=== PATIENT | female | born 1965 | race Caucasian/White ===

== ENCOUNTER 2022-02-26 12:15 | Outpatient (CLI) | payer OTHER, SELFPAY ==
--- NOTE | 2022-02-26 12:36 | XR_ITS ---
WS: [id number] DEXA (DUAL ENERGY X-RAY ABSORPTIOMETRY) Bone mineral density was performed using a Beats[employer] machine. HISTORY: POST MENOPAUSAL COMPARISON: None available. Lumbar spine BMD (L1-L4): 0.943 g/cm2 T score: -2.0 Z score: -0.9 Total hip BMD: Left: 0.691 g/cm2. T score: -2.5 Z score: -1.7 Right: 0.661 g/cm2. T score: -2.8 Z score: -1.9 10 year probability of a major osteoporotic fracture is 24%. XR/XR DEXA axial skeleton* [id number] IMPRESSION: OSTEOPOROSIS based upon the WHO classification for females.
== END 2022-02-26 12:16 | disposition home or self-care (01) ==
LOC: RAD 12:17
PROVIDERS: Visit Provider Family Medicine
DX: Z78.0 Asymptomatic menopausal state (principal); M81.0 Age-related osteoporosis without current pathological fracture
CPT/HCPCS: 77080

== ENCOUNTER 2022-04-10 08:14 | Outpatient (CLI) | payer OTHER, SELFPAY ==
--- NOTE | 2022-04-10 08:26 | CT_ITS ---
WS: [id number] LDCT LUNG CANCER SCREENING TECHNIQUE: Noncontrast CT of the chest with coronal and sagittal reformatted images. CLINICAL INFORMATION: NICOTINE DEPENDENCE,CIGARETTES COMPARISON: None. DLP: 72.59 mGy.cm DIvol: Mean CTDIvol: 1.60 (mGy) All CT scans at [facility] use at least one of these dose optimization techniques: automat ed exposure control; mA and/or kV adjustment per patient size (includes targeted exams where dose is matched to clinical indication); or iterative reconstruction. FINDINGS: Moderate chronic emphysematous changes. Slight bibasilar atelectasis. No focal pneumonia or pleural f luid. A few small noncalcified nodules in the LEFT upper lobe and RIGHT upper lobe the largest measur ing 3 mm. Normal caliber thoracic aorta. No mediastinal or hilar lymphadenopathy. No axillary lymphadenopathy. Adrenal glands are normal. Chronic appearing LEFT hydronephrosis partial ly visualized. This can be further evaluated with CT abdomen pelvis. LEFT renal cortical atrophy. Heterogeneous parenchymal breast tissue with RIGHT breast nodule measuring 8 mm Upper outer RIGHT jaimie ast. Recommend further evaluation with diagnostic mammography and ultrasound. Additional nodular dens ity central LEFT breast measuring 7 mm. Also recommend LEFT diagnostic mammography and ultrasound. CT/CT lung screening [id number] IMPRESSION: 1. Advanced chronic appearing LEFT hydronephrosis. Recommend further evaluatio n with CT abdomen pelvis. 2. Slightly heterogeneous breast tissue bilaterally with bilateral breast nodu les RIGHT greater than LEFT. Recommend further evaluation with diagnostic mammo graphy and ultrasound. Dominant nodule upper outer RIGHT breast measuring 8 mm. Additional nodule central LEFT breast measuring 7 mm. LUNG-RADS: 2S-Benign Appearance or Behavior with Significant Findings FOLLOW UP: 12 Month: Continue annual screening with LDCT
== END 2022-04-10 08:15 | disposition home or self-care (01) ==
LOC: RAD 08:18
PROVIDERS: PCP Family Medicine; Visit Provider Family Medicine
DX: F17.210 Nicotine dependence, cigarettes, uncomplicated (principal)
CPT/HCPCS: 71271

== ENCOUNTER 2022-04-26 12:00 | Outpatient (CLI) | payer OTHER, SELFPAY ==
--- NOTE | 2022-04-26 12:04 | MM_ITS ---
WS: [id number] BILATERAL 3D TOMOSYNTHESIS DIGITAL SCREENING MAMMOGRAPHY WITH CAD CLINICAL INFORMATION: SCREENING HISTORY: Screening mammogram. RIGHT breast pain and soreness. COMPARISON: June 15, [address] lung screening April 10, 2022 TECHNIQUE: Bilateral CC and MLO views. FINDINGS: The breasts are composed of heterogeneous fibroglandular density tissue, which can limit the detectio n of small underlying mass lesions. Dystrophic calcification RIGHT breast. Asymmetric ovoid densities subareolar and upper outer RIGHT breast mid and anterior depth. Most promi nent at the 12:00 position measuring 8 mm. Recommend RIGHT breast diagnostic mammography and ultrasou nd for further evaluation. LEFT breast is unremarkable and unchanged. MM/[place] [id number] IMPRESSION: BI-RADS: 0-Incomplete: Need additional imaging evaluation FOLLOW UP: Need Additional Imaging Recommend RIGHT breast diagnostic mammography and ultrasound in further evaluat ion. Ultrasound 12:00 position and upper outer RIGHT breast as well as subareol ar.
== END 2022-04-26 12:01 | disposition home or self-care (01) ==
LOC: RAD 12:02
PROVIDERS: PCP Family Medicine; Visit Provider Family Medicine
DX: Z12.31 Encounter for screening mammogram for malignant neoplasm of breast (principal)
CPT/HCPCS: 77063; 77067

== ENCOUNTER 2022-05-01 07:44 | Outpatient (CLI) | payer OTHER, SELFPAY ==
--- NOTE | 2022-05-01 | US_ITS ---
WS: [id number] Exam: US renal BI* [id number] Date/Time of Exam: 05/01/2022 12:00 AM Reason For Exam: HYDRONEPHROSIS There is severe hydronephrosis of the left kidney. The left kidney measures 12.7 x 6.9 x 5.83 cm. The re is also an echogenic mass with calcification in the lower pole of the left kidney that measures 2 x 2 x 2.7 cm. There is a cortical thinning of the left kidney. Evaluation of the right kidney shows a small cyst in the lower pole. This measures about 1 cm greates t diameter. The right kidney measures 10 x 3.6 x 4 cm. The urinary bladder was suboptimally distended for detailed evaluation. Recommendations: Further workup with contrast CT scan of the abdomen and pelvis should be considered. US/US renal BI* [id number] IMPRESSION: 1. Solid hyperechoic mass with calcifications noted in the lower pole of the le ft kidney that measures 2 x 2 x 2.7 cm. The mass is moderately vascular. Malign adi not excluded. 2. Marked left hydronephrosis with some parenchymal atrophy of the left kidney. 3. Small cyst at the lower pole the right kidney. The right kidney was otherwis e unremarkable. Collapsed urinary bladder could not be accurately evaluated.
== END 2022-05-01 07:45 | disposition home or self-care (01) ==
LOC: RADOUTREAD 05-02 07:46
PROVIDERS: PCP Family Medicine; Visit Provider Family Medicine
DX: N13.30 Unspecified hydronephrosis (principal); N28.1 Cyst of kidney, acquired; N28.89 Other specified disorders of kidney and ureter
CPT/HCPCS: 76770

== ENCOUNTER 2022-05-15 10:04 | Outpatient (CLI) | payer OTHER, SELFPAY ==
--- NOTE | 2022-05-15 10:54 | XR_ITS ---
WS: [email or web address] Exam: XR KUB [id number] Date/Time of Exam: 05/15/2022 10:55 AM Reason For Exam: Hydronephrosis No bowel obstruction or free air. Multiple calcifications superimpose both kidneys and are likely chilo al stones. There is enlargement of the left renal silhouette. A 1 cm calcification is seen along the medial aspect of the left kidney and may represent an obstructing stone in the renal pelvis. No sign of organ enlargement. Bony structures are intact. XR/XR KUB [id number] IMPRESSION: 1. 1 cm calcification seen along the medial aspect of the left kidney may repre sent a renal pelvic stone. There is enlargement of the left renal silhouette th at may be secondary to hydronephrosis. 2. Additional small calcification superimpose both kidneys most likely multiple nonobstructing bilateral stones. 3. Multiple nonspecific pelvic calcifications.
== END 2022-05-15 10:05 | disposition home or self-care (01) ==
PROVIDERS: PCP Family Medicine; Visit Provider Urology
DX: N13.30 Unspecified hydronephrosis (principal)
CPT/HCPCS: 74018; 81003

== ENCOUNTER 2022-06-04 09:53 | Outpatient (CLI) | payer OTHER, SELFPAY ==
--- NOTE | 2022-06-04 10:00 | CT_ITS ---
WS: [id number] CT ABDOMEN AND PELVIS WITH AND WITHOUT CONTRAST HISTORY: HYDRONEPHROSIS TECHNIQUE: Unenhanced 5 mm axial imaging first performed through the abdomen. Post contrast imaging t hrough the abdomen and pelvis. Oral contrast has been provided. Sagittal and coronal reformats are s ubmitted. All CT scans at [facility] use at least one of these dose optimization techniques: automated exposure control; mA and/or kV adjustment per patient size (includes targeted exams where d ose is matched to clinical indication); or iterative reconstruction. CONTRAST: Omnipaque 350; 95 mL IV. DLP: 2565.65 mGy.cm COMPARISON: Renal ultrasound 05/01/2022 Lung bases are clear. Heart size is normal. No hiatal hernia. RIGHT kidney: Normal size kidney. 10 mm lower pole cyst. No renal obstruction. No filling defects prosper ng the ureter but the ureter is only partially opacified on the delayed images. LEFT kidney: Severe LEFT hydronephrosis secondary to calcification at the UP junction. Calcification extends over a length of 10 mm. Transverse diameter 8 mm. Severe hydronephrosis with cortical thinnin g. There is still enhancement present within the preserved renal parenchyma. Additional nonobstructin g 3 mm calcification mid kidney. Layering calcification in the lower pole this may be calcification w ithin the wall of the cyst or calcification within the dilated calyces. There are a few additional sc attered cortical cysts throughout the kidney. No solid mass. Scattered too small to characterize hypodensities throughout the liver. Normal portal vein. Normal sp moshe and pancreas. Normal adrenal glands. Mild atherosclerosis aorta. Normal enhancement of the proxi mal mesenteric arteries. No ascites or adenopathy. No GI tract obstruction. Normal appendix. Uterus is anteverted and normal size. Soft tissue mass with calcification arises from the superior ut erus measuring 2.5 x 2.3 cm. No free fluid. CT/CT abdomen pelvis wo/w [id number] IMPRESSION: 1. Severe hydronephrosis LEFT kidney secondary to a ureteral calcification at the UP junction. Calcification extends over length of 10 mm and transversely by 8 mm. 2. Diffuse cortical thinning LEFT kidney suggests long-term obstruction but th ere is still renal parenchymal enhancement. 3. Too small to characterize hypodensities scattered throughout the liver. 4. Mild atherosclerosis aorta. 5. Fibroid uterus.
[2022-06-04] MEDS: iohexol 350 mg/mL 100 mL Btl IV (10:19)
== END 2022-06-04 09:54 | disposition home or self-care (01) ==
PROVIDERS: PCP Family Medicine; Visit Provider Urology
DX: N13.30 Unspecified hydronephrosis (principal); N28.89 Other specified disorders of kidney and ureter; I70.0 Atherosclerosis of aorta; D25.9 Leiomyoma of uterus, unspecified
CPT/HCPCS: 74178; 81003

== ENCOUNTER 2022-06-10 13:07 | Outpatient (CLI) | payer OTHER, SELFPAY ==
--- NOTE | 2022-06-10 13:17 | MM_ITS ---
WS: [id number] RIGHT 3D TOMOSYNTHESIS DIGITAL MAMMOGRAPHY WITH CAD CLINICAL INFORMATION: ABNORMAL MAMMO COMPARISON: April 26, 2022 TECHNIQUE: 3 views of the right breast were obtained. FINDINGS: Scattered fibroglandular densities of the right breast. Several ovoid densities RIGHT breast are unch anged. Ultrasound described below. ULTRASOUND BREAST RIGHT TECHNIQUE: Ultrasound right breast focused area of concern. CLINICAL INFORMATION: ABNORMAL MAMMO COMPARISON: Ultrasound January 15, 2008 FINDINGS: Comparison ultrasound January 15, 2008. Ultrasound RIGHT breast 12:00 position demonstrates hypoechoic solid nodule measuring 6.4 x 4.6 x 7.8 mm. This may represent a fibroadenoma but indeterminant and recommend further evaluation ultrasound- guided biopsy. A similar appearing lesion on the ultrasound 2007 but at 10:00 and considering the new findings on mammography recommend proceeding with ultrasound-guided biopsy. In addition, there is a tiny similar-appearing solid lesion at the 9:00 position also suspicious for fibroadenoma measuring approximately 5 mm. Recommend ultrasound-guided biopsy of this lesion. Tiny incidental cysts visualized at the 11:00 position. MM/[place] [id number] IMPRESSION: BI-RADS: 4-Suspicious Finding-Biopsy Should Be Considered FOLLOW UP: US Guided Biopsy Recommended Recommend ultrasound-guided biopsy of the two RIGHT breast lesions.
== END 2022-06-10 13:08 | disposition home or self-care (01) ==
LOC: RAD 13:08
PROVIDERS: PCP Family Medicine; Visit Provider Family Medicine
DX: R92.8 Other abnormal and inconclusive findings on diagnostic imaging of breast (principal); N63.10 Unspecified lump in the right breast, unspecified quadrant
CPT/HCPCS: 76642; 77061

== ENCOUNTER 2022-06-24 05:55 | Day surgery (SDC) | payer OTHER, SELFPAY ==
[2022-06-21 09:53] VITALS: BMI 26.2
[2022-06-24] VITALS (15 sets, daily range): BP systolic 102–139; BP diastolic 60–87; PULSE 65–89; RESP 14–18; TEMP 36.2–37.1; O2SAT 92–99
--- NOTE | 2022-06-24 03:34 | P.HPUD_ITS ---
Surgery/Procedure H&P Update DATE OF PROCEDURE: June 24, 2022 DATE H&P PERFORMED: 06/04/22 H&P UPDATE INFORMATION: I have reviewed H&P completed within last 30 days, I have examined patient prior to procedure, No changes to prior documentation and H&P is in [facility] EMR on date indicated CHANGES TO PREVIOUS DOCUMENTATION: No significant change from prior visit. Spent a good deal of time this morning talk to her and her regarding the findings. Emphasized the uniqueness of her situation with an already significantly damaged kidney obviously from a stone that had been in place for an extended period of time. Laid out the options as follows: 1. Cystoscopy, retrograde, stent placement if possible. 2. If unable to pass a wire beyond the stone then perform ureteroscopy to assess the anatomy. 3. If stone is readily accessible then consider with ureteroscopic approach laser lithotripsy and wire placement and stenting and completion potentially with ESWL 4. If the stone is not readily accessible due to impaction and likely severe inflammatory changes we will abandon the procedure altogether and consider additional options of percutaneous nephrostolithotomy versus functional assessment followed by possible nephrectomy versus continued observation given the poor status of the kidney already This was essentially clarification of our conversation in clinic now in the presence of her as well. More detail was provided today after having had a chance to think about it since last visit PLANNED PROCEDURE: Operation Date: 06/24/22 07:00 Proposed Procedures p CYSTOSCOPY LEFT RETROGRADE URETEROSCOPY POSSIBLE LASER EXTRACORPOREAL SHOCKWAVE LITHOTRIPSY STENT 47334,68756,53474,N28.89,N13.30(Not Applicable) - Keenan Vilchis MD s Retrograde Pyelogram(Left) - Keenan Vilchis MD s Ureteroscopy(Left) - Keenan Vilchis MD s Laser Lithotripsy(Left) - Keenan Vilchis MD s Ureteral Stent Placement(Left) - Keenan Vilchis MD
--- NOTE | 2022-06-24 06:12 | XRR_ITS ---
PROCEDURE INFORMATION: Exam: XR Abdomen Exam date and time: 06/24/2022 6:18 AM Age: 56 years old Clinical indication: Screening exam; Other: Preop eswl left upj stone TECHNIQUE: Imaging protocol: Radiologic exam of the abdomen. Views: Frontal supine view of the abdomen. 1 View. COMPARISON: CT abdomen pelvis wo/w [id number] 06/04/2022 10:16 AM FINDINGS: Gastrointestinal tract: Unremarkable bowel gas pattern. Intraperitoneal space: Multiple nonspecific subcentimeter pelvic calcifications. Organs: 9 x 7 mm left UPJ calculus, which was better visualized on previous CT. Bones/joints: Mild dextroscoliosis. XR/XR KUB [id number] IMPRESSION: 9 x 7 mm left UPJ calculus, which was better visualized on previous CT.
--- NOTE | 2022-06-24 06:33 | P.ANESASSM_ITS ---
Pre-Anesthetic Assessment Height/Weight: Height 1.52 m Weight 60.781 kg Preop Diagnosis: Left UPJ stone with obstruction Operation Date: 06/24/22 07:00 Proposed Procedures p CYSTOSCOPY LEFT RETROGRADE URETEROSCOPY POSSIBLE LASER EXTRACORPOREAL SHOCKWAVE LITHOTRIPSY STENT 24200,[id number],89188,N28.89,N13.30(Not Applicable) - Keenan Vilchis MD s Retrograde Pyelogram(Left) - MD ange Gustafson Ureteroscopy(Left) - MD ange Gustafson Laser Lithotripsy(Left) - MD ange Gustafson Ureteral Stent Placement(Left) - Keenan Vilchis MD Familial anesthetic complications: None Was Beta Jill taken within 24 hours: N/A Was Clonidine taken within 24 hours: N/A Social No alcohol and No tobacco Exam alert, oriented x 3, clear to auscultation bilaterally and regular rate & rhythm Airway Submandibular: within normal limits Cervical ROM: within normal limits Mallampati: Class I Dentition: full History/ROS No significant complaints Pulmonary None reported CV/HEM None reported METS > 4 None reported Hydronephrosis Renal atrophy Ureteral calculus Hepatic None reported GI None reported Metabolic None reported Musc/skel None reported Neuropsych None reported Anesthetic Plan ASA status: 2 Anesthesia: Anesthesia Evaluation and General Other: We discussed risk and benefits of general anesthesia including PONV, sore throat (sometimes severe), corneal abrasion, positioning and peripheral nerve injuries, life threatening allergic reaction, post operative ICU admission requiring prolonged intubation, stroke, heart attack, , and rare incidences of recall. Patient consents to proceed with general anesthesia. Risk of > 500 ml blood loss (7ml/kg in children): No Medications/Allergies Home Medications Medication Instructions Recorded Confirmed Last Taken Type cholecalciferol (vitamin D3) 250 250 mcg PO DAILY 05/15/22 06/24/22 06/22/22 History mcg (10,000 unit) capsule levothyroxine 100 mcg capsule 100 mcg PO DAILY 05/15/22 06/24/22 06/20/22 History levothyroxine 112 mcg capsule 112 mcg PO DAILY 05/15/22 06/24/22 06/23/22 History Allergies Allergy/AdvReac Type Severity Reaction Status Date / Time penicillin G Allergy UNKNOWN Verified 06/24/22 06:28 [facility] Anesthesia Medical History Hydronephrosis, left Family History Mother , AT AGE 88 History of fractured vertebra Father , AT AGE 94 No problems noted. Social History Smoking and tobacco status: current every day smoker Alcohol intake: never Marital status: Current occupational status: employed History of recent travel: No Data Anesthesia Cardiac Studies: No Data to Display
--- NOTE | 2022-06-24 07:12 | PM.OP ---
Operative Report Date of procedure: June 24, 2022 Pre-op diagnosis: Chronically obstructing left UPJ stone with renal atrophy Post-op diagnosis: Chronically obstructing left UPJ stone with renal atrophy Procedure done: 1. Cystoscopy, LEFT: Retrograde pyelogram 2. Left ureteroscopy Implants: None Specimens removed/disposition: None Pathology: None Surgeon: Mame Anesthesia: General Estimated blood loss: Minimal Complications: Could not obtain retrograde access due to the condition of the impacted stone and its impact on the left UPJ with secondary inflammatory changes . Findings: 1. Normal ureter on retrograde pyelogram until the UPJ was encountered at which point there was minimal contrast able to be advanced beyond the stone. There was an area of filling defect just below the stone consistent with significant inflammatory change. 2. Could not advance guidewire past the stone even with use of Glidewire and open-ended ureteral catheter 3. Could not advance ureteroscope all the way to where the stone was visualized. 4. Procedure was aborted at that point because of the inability to obtain retrograde access and the high likelihood of severe impaction of the stone based on chronic obstructive changes. We had planned for this option if retrograde access could not be obtained safely . Brief History: Danika is a very pleasant 56-year-old white female who was discovered to have severe hydronephrosis with renal atrophy ultimately proven to be secondary to a chronically obstructing left UPJ stone that was essentially asymptomatic Her kidney was still functioning although severely impacted by this chronic obstruction. We reviewed options which would include endoscopic (retrograde/antegrade approaches), ESWL with stenting, observation alone, nephrectomy etc. Ultimately we decided to treat the stone with ESWL as first choice. Given the severe obstructive uropathy changes with atrophy it is expected that the stone will be impacted possibly very difficult to access from below. Preoperatively we decided to abort the procedure if no access could be obtained via stenting with or without assistance of ureteroscopic evaluation. Conversion to delayed percutaneous nephrostolithotomy or observation or nephrectomy would then be on the table if retrograde access could not be obtained . Procedure: After routine preoperative evaluation examination and obtaining of informed consent she was taken to the operating suite on 06/24/2022 where general anesthesia was administered without difficulty. Prepped and draped in usual sterile fashion in dorsolithotomy position paying careful attention to avoiding pressure points. 21 Argentine cystoscope with 30 degree lens was introduced into the urethra meatus and advanced into the bladder under videoscopy. The bladder was systematically examined and was found to be normal. An 8 Argentine cone-tip catheter was intubated into the left ureteral orifice for LEFT RETROGRADE URETEROPYELOGRAM: Demonstrated normal course and caliber of the ureter until just below the visualized stone in the expected position. There was a flat area of filling defect just below the stone consistent with inflammatory changes. A flexible tip guidewire was then passed up the left ureter but could not be easily passed. A Glidewire was then utilized with the same result. An open-ended ureteral catheter was passed to just below this area but did not facilitate passage of the wire. At no point was significant pressure put on the wire to try to bypass the stone but rather slow steady, not excessive pressure. A flexible ureteroscope was then attempted to be passed over the wire but could not be easily passed beyond the UVJ. The distal ureter was then dilated with a 50 Argentine 4 cm balloon through the cystoscope until no waist. Did require about 8 prosper of pressure to get full dilation. And offset semirigid ureteroscope was advanced over the guidewire but could not be advanced all the way to the point of visualization of the stone. At this point it was deemed to be more futile to consider more aggressive means. We had determined preoperatively that if the stone could not be easily bypassed from below either with a wire and stent or with wire and stent facilitated with ureteroscopy that we would abort and then consider the above options of percutaneous nephrostolithotomy, observation, nephrectomy. The bladder was drained and the procedure was completed. She tolerated procedure well without complications. Awakened in the operating room and returned to the recovery room in stable condition PLANS: 1. Anticipate discharge from outpatient surgery 2. We will discuss on outpatient basis our next step as outlined above.
[2022-06-24] MEDS: levofloxacin-dextrose 5 % 500 MG/100 ML PREMIX 100 MG IV (07:20)
[2022-06-24] MEDS: sodium chloride 0.9% 1,000 ML 30 ML IV (07:23)
--- NOTE | 2022-06-24 07:42 | SUR.OPER ---
omnipaque 100ml 300mgI/ml lot [id number] exp 11/14/24. 14ml used
[2022-06-24] MEDS: ondansetron 2 mg/ML SDV 2 mL 4 MG IVP ×2 (08:22→08:33)
[2022-06-24] MEDS: metoclopramide 5 mg/mL SDV 2 mL 10 MG IVP ×2 (08:38→08:45)
[2022-06-24] MEDS: dexamethasone 4 mg/mL INJ IVP (08:57)
--- NOTE | 2022-06-24 12:33 | ANE.PACU2 ---
Inpatient post-anesthesia follow up: Airway intact: Yes Vital signs: Temperature 98.7 F Pulse Rate 73 Respiratory Rate 18 Blood Pressure 134/60 Pulse Oximetry 96 Oxygen Delivery Me thod Room Air Oxygen Flow Rate 6 Fraction of Inspir ed Oxygen Hydration adequate: Yes Nausea and vomiting: No Pain level: 1 Mental status: Baseline
== END 2022-06-24 09:42 | disposition home or self-care (01) ==
PROVIDERS: PCP Family Medicine; Visit Provider Urology
PROC: (CPT 74420; 2022-06-24 07:00)
PROC: 0TJ98ZZ Inspection of Ureter, Via Natural or Artificial Opening Endoscopic (ICD-10-PCS; CPT 52351; 2022-06-24 07:00)
PROC: 0TJB8ZZ Inspection of Bladder, Via Natural or Artificial Opening Endoscopic (ICD-10-PCS; CPT 52000; 2022-06-24 07:00)
DX: N13.5 Crossing vessel and stricture of ureter without hydronephrosis (principal); N26.1 Atrophy of kidney (terminal); F17.210 Nicotine dependence, cigarettes, uncomplicated
CPT/HCPCS: 52351; 74018; 96368; J1100; J1956; J2405; J2704; J2710; J2765; J3010; J3490; J7030

== ENCOUNTER → 2022-07-12 09:41 | Outpatient (BNVA) | payer OTHER, SELFPAY | PROVIDERS: PCP Family Medicine; Visit Provider Urology | DX: N20.1 Calculus of ureter (principal) | CPT/HCPCS: 81003 ==

== ENCOUNTER 2022-07-16 12:07 | Outpatient (CLI) | payer OTHER, SELFPAY ==
--- NOTE | 2022-07-16 12:22 | US_ITS ---
WS: [id number] ULTRASOUND-GUIDED RIGHT BREAST BIOPSY HISTORY: Biopsy RIGHT breast mass at 12:00. Previously described mass at 9:00 is not evident on today 's examination. COMPARISON: 06/10/2022 Procedure, risks and complications are explained to the patient. Medications are reviewed. Consent is obtained. The mass in the RIGHT breast is localized with ultrasound. Mass localizes at 12:00 at the areolar. Sk in is cleansed with ChloraPrep and anesthetized with 1% buffered lidocaine. Small dermatome is made. Under sterile conditions mass is biopsied with a 14-gauge Achieve needle. Multiple core biopsies are performed. Material placed in formalin and sent to pathology for review. No complications encountered . Breast tissue marker (Bard ultrasound enhanced ribbon): Single. Patient left the radiology suite with no complications. Patient is instructed to return to [facility] with any concerns. US/[place] [id number] IMPRESSION: 1. Uncomplicated core needle biopsy well-circumscribed RIGHT breast mass at 12 :00 at the areolar. PATHOLOGY: Fibroadenoma. No malignancy. RECOMMENDATION: Return to screening mammography.
== END 2022-07-16 12:08 | disposition home or self-care (01) ==
LOC: RAD 12:08
PROVIDERS: PCP Family Medicine; Visit Provider Family Medicine
DX: R92.8 Other abnormal and inconclusive findings on diagnostic imaging of breast (principal); N63.15 Unspecified lump in the right breast, overlapping quadrants; D24.1 Benign neoplasm of right breast
CPT/HCPCS: 19083; 88305

== ENCOUNTER 2024-03-25 10:59 | Outpatient (CLI) | payer OTHER, SELFPAY ==
--- NOTE | 2024-03-25 11:02 | CT_ITS ---
WS: [email or web address] LDCT LUNG CANCER SCREENING TECHNIQUE: Noncontrast CT of the chest with coronal and sagittal reformatted images. CLINICAL INFORMATION: NICOTINE DEPENDENC, CIGARETTES COMPARISON: 04/10/2022 DLP: 40.42 mGy.cm DIvol: Mean CTDIvol: 0.80 (mGy) All CT scans at [facility] use at least one of these dose optimization techniques: automat ed exposure control; mA and/or kV adjustment per patient size (includes targeted exams where dose is matched to clinical indication); or iterative reconstruction. FINDINGS: Chronic atheromatous changes. A few small noncalcified micronodules in both upper lobes the largest m easuring 3 mm similar to previous. 4 mm new noncalcified nodule along the RIGHT fissure RIGHT lower l obe anteriorly. Slight bibasilar atelectasis. Small nodule RIGHT lower lobe measuring 3 mm. Fibrosis in the lung apices. Normal caliber thoracic aorta. No mediastinal or hilar lymphadenopathy. Normal GE junction. Adrenal g lands are normal. Partially visualized LEFT hydronephrosis similar to previous. No axillary lymphaden opathy. Mild thoracic curve. Mild thoracic kyphosis. CT/CT lung screening [id number] IMPRESSION: LUNG-RADS: 2-Benign Appearance or Behavior FOLLOW UP: 12 Month: Continue annual screening with LDCT
== END 2024-03-25 11:00 | disposition home or self-care (01) ==
LOC: RAD 10:59
PROVIDERS: PCP Family Medicine; Visit Provider Family Medicine
DX: Z12.2 Encounter for screening for malignant neoplasm of respiratory organs (principal); F17.210 Nicotine dependence, cigarettes, uncomplicated; R91.8 Other nonspecific abnormal finding of lung field; M40.204 Unspecified kyphosis, thoracic region
CPT/HCPCS: 71271

== ENCOUNTER 2024-08-30 07:30 | Outpatient (CLI) | payer OTHER, SELFPAY ==
--- NOTE | 2024-08-30 07:44 | MM_ITS ---
WS: [id number] SCREENING DIGITAL BREAST TOMOSYNTHESIS MAMMOGRAM WITH CAD HISTORY: SCREEN COMPARISON: 06/10/2022, 04/26/2022, 06/15/2013 Bilateral CC and MLO with tomosynthesis and synthetic mammography submitted. Computer aided detection analyzed. Breast composition: The breasts are heterogeneously dense, which may obscure small masses. Focal asym metry seen only on the RIGHT MLO in the posterior breast laterally. Asymmetry measures approximately 11 mm. No corresponding abnormality on the CC projection. There are additional benign calcifications within each breast. Mass with ribbon biopsy clip in the anterior RIGHT breast. MM/MM scr BI tomosynthesis [id number] IMPRESSION: BI-RADS: 0 - Incomplete: Need additional imaging evaluation FOLLOW UP: Need Additional Imaging RIGHT breast: Spot compression views (MLO). True ML. Ultrasound to follow if ab normality persists.
== END 2024-08-30 07:41 | disposition home or self-care (01) ==
PROVIDERS: PCP Family Medicine; Visit Provider Family Medicine
DX: Z12.31 Encounter for screening mammogram for malignant neoplasm of breast (principal)
CPT/HCPCS: 77063; 77067

== ENCOUNTER 2024-11-29 09:54 | Outpatient (CLI) | payer OTHER, SELFPAY ==
--- NOTE | 2024-11-29 09:58 | MM_ITS ---
WS: [id number] ADDITIONAL VIEWS RIGHT MAMMOGRAM WITH DIGITAL BREAST TOMOSYNTHESIS. RIGHT BREAST ULTRASOUND HISTORY: INCONCLUSIVE MAMMOGRAM COMPARISON: 04/26/2022, 08/30/2024 and 06/10/2022, 06/15/2013 RIGHT MAMMOGRAM: Spot compression views and true ML with digital breast tomosynthesis and SM. Asymmetry becomes less apparent with spot compression views. There is scattered small asymmetries thr oughout the upper outer quadrant which appear relatively stable. There is a small lymph node which aldridge s been present on multiple prior studies posterior and in the inferior breast. Ultrasound will be per formed of the upper outer quadrant. RIGHT BREAST ULTRASOUND 2-D and color Doppler imaging submitted. No shadowing or mass is identified in the upper outer quadrant. The biopsy clip and the previously bi opsied nodule at 12:00 is identified. MM/MM diag RT tomosynthesis [id number] IMPRESSION: BI-RADS: 2- Benign FOLLOW UP: 1 Year Follow-up No persistent abnormality RIGHT breast. Recommend return to annual screening ma mmography.
== END 2024-11-29 09:55 | disposition home or self-care (01) ==
LOC: RAD 09:57
PROVIDERS: PCP Family Medicine; Visit Provider Family Medicine
DX: R92.2 Inconclusive mammogram (principal); N64.89 Other specified disorders of breast; N63.15 Unspecified lump in the right breast, overlapping quadrants
CPT/HCPCS: 76642; 77061; G0279

== ENCOUNTER 2025-11-21 14:08 | Outpatient (CLI) | payer OTHER, SELFPAY ==
--- NOTE | 2025-11-21 14:21 | MM_ITS ---
WS: [id number] Bilateral screening 3D tomosynthesis digital mammogram, 11/21/2025 2:22 PM Clinical Data: ANNUAL SCREENING Comparison: 11/29/2024, 08/30/2024, 06/10/2022, 04/26/2022, 06/15/2013, 01/15/2008 Findings: No spiculated masses or clustered calcifications are seen. There are no secondary signs of carcinoma. There is a biopsy clip in the anterior aspect of the right breast. MM/MM scr BI tomosynthesis [id number] Impression: Negative bilateral mammogram unchanged. Recommend annual screening mammograms. BIRADS: 1 - Negative. FOLLOW UP: 1 Year Follow-up DENSITY: There are scattered areas of fibroglandular density. The CAD dead mail checker was used
--- NOTE | 2025-11-21 14:21 | XR_ITS ---
WS: [id number] DEXA (DUAL ENERGY X-RAY ABSORPTIOMETRY) Bone mineral density was performed using a [employer] machine. HISTORY: OSTEOROPSIS COMPARISON: 02/26/2022 Lumbar spine BMD (L1-L4): 0.980 g/cm2 T score: -1.7 Z score: -0.3 Total hip BMD: Left: 0.739 g/cm2. T score: -2.1 Z score: -1.1 Right: 0.700 g/cm2. T score: -2.4 Z score: -1.4 10 year probability of a major osteoporotic fracture is 26.3% Compared to the prior study from 02/26/2022. Lumbar spine bone mineral density has increased by 3.9%. Bilateral hips bone mineral density has increased by 6.4%. XR/XR DEXA axial skeleton* [id number] IMPRESSION: OSTEOPENIA based upon the WHO classification for females. Significant increase in bone mineral density within the lumbar spine and hips s north the prior study.
== END 2025-11-21 14:09 | disposition home or self-care (01) ==
PROVIDERS: PCP Family Medicine; Visit Provider Family Medicine
DX: Z12.31 Encounter for screening mammogram for malignant neoplasm of breast (principal); Z96.89 Presence of other specified functional implants; R92.323 Mammographic fibroglandular density, bilateral breasts; M85.89 Other specified disorders of bone density and structure, multiple sites; Z78.0 Asymptomatic menopausal state
CPT/HCPCS: 77063; 77067; 77080